=== PATIENT | female | born 1955 | race Caucasian/White ===

== ENCOUNTER → 2017-03-18 | Day surgery (SDC) | payer BC ==
[2017-03-17 13:46] VITALS: BMI 27.0
[~2017-03-18] MED LIST: Cyclopentolate 1% Opth Drop 2 ML BOT FS SCH; Cyclopentolate 1% Opth Drop 2 ML BOT ONE; Diprivan 20 ML ONE; EPINEPHrine 0.3 MG in Ophthalmic Irrigation Solution 500 ML FS SCH; Fentanyl 100 MCG/2 ML VIAL ONE; Lidocaine 2% PF 10 ML AMP (For Epidural Use) ONE; Midazolam HCl 2 mg/2 ml Vial ONE; Phenylephrine HCl 2.5% Ophth Soln 5 ML BOT FS SCH; Phenylephrine HCl 2.5% Ophth Soln 5 ML BOT ONE; Propofol 200 MG/20 ML VIAL ONE
--- NOTE | 2017-03-18 09:47 | OP ---
DATE OF PROCEDURE: 03/18/2017 PREOPERATIVE DIAGNOSIS: Vitreous opacification, right eye. POSTOPERATIVE DIAGNOSIS: Vitreous opacification, right eye. PROCEDURE: Pars plana vitrectomy, right eye. SURGEON: Cy Thomas M.D. ANESTHESIA: Local with monitored anesthesia care. COMPLICATIONS: None. PROCEDURE IN DETAIL: The patient was identified in the preoperative holding area. Appropriate info rmed consent for the planned surgical procedure on the right eye had been obtained. The patient was transported to the operative suite where appropriate cardiopulmonary monitoring was established. L ocal anesthesia was obtained using retrobulbar and modified Van Lint lid block using 50/50 mixture o f 4% lidocaine and 0.75% bupivacaine. The patient was prepped and draped in the usual sterile bakari r for ophthalmic surgery on the right eye. Lid speculum was placed in the right eye. The 25-gauge trocars were placed in conjunctiva and sclera supratemporally, inferotemporally, and supranasally. Infusion line was placed inferotemporally, and 20-gauge sclerotomy was created supranasally. Vitreo us fluid removal device was inserted into the eye and silicone oil was removed. Sclerotomy was sutu re closed with 7-0 Vicryl suture. Light pipe and vitreous cutter were inserted into the eye. Resid ual droplets and vitreous fluid was removed at this time. Retina was nicely attached. Trocar s were removed and sutured closed with 6-0 plain gut suture. Retrobulbar Kenalog and subconjunctiva l Ancef were placed. Atropine and antibiotic ointment were placed, and the eye was patched and shie lded. The patient was taken to the postoperative recovery unit in good condition having suffered no immediate perioperative complications. DISCHARGE INSTRUCTIONS: The patient was instructed to keep patch and shield on, avoid lifting and b ending, and follow up in the morning with Dr. Thomas.
== END ==
LOC: SDC 06:15
PROVIDERS: ATTEND Ophthalmology Retina Specialist
PROC: 08T43ZZ Resection of Right Vitreous, Percutaneous Approach (ICD-10-PCS; principal; 2017-03-18)
DX: H43.311 Vitreous membranes and strands, right eye (principal); Z98.890 Other specified postprocedural states; Z79.899 Other long term (current) drug therapy; Z88.2 Allergy status to sulfonamides
CPT/HCPCS: J0171; J2001; J2250; J2704; J3010

== ENCOUNTER 2017-11-10 12:14 | Outpatient (CLI) | payer BC | END 2017-11-10 12:15 | disposition home or self-care (01) | LOC: BICMAMMO 12:14 | PROVIDERS: ATTEND Internal Medicine | DX: Z12.31 Encounter for screening mammogram for malignant neoplasm of breast (principal); Z80.3 Family history of malignant neoplasm of breast; Z85.820 Personal history of malignant melanoma of skin | CPT/HCPCS: 77063; 77067 ==

== ENCOUNTER 2018-12-05 15:23 | Outpatient (CLI) | payer BC ==
--- NOTE | 2018-12-05 15:56 | MMO ---
Bilateral MAMMO Bilat Screen [facility]. CLINICAL HISTORY: Patient is 62 years old and is seen for screening. VIEWS: The views performed were: bilateral craniocaudal with tomosynthesis and bilateral mediolateral oblique with tomosynthesis. FILMS COMPARED: The present examination has been compared to prior imaging studies performed at [facility] on 04/30/2009, 12/14/2014, 10/06/2016 and 11/10/2017. MAMMOGRAM FINDINGS: There are scattered fibroglandular densities. There are stable benign appearing calcifications seen in both breasts. There are no suspicious masses, suspicious calcifications, or new areas of architectural distortion. IMPRESSION: THERE IS NO MAMMOGRAPHIC EVIDENCE OF MALIGNANCY. A ROUTINE FOLLOW-UP MAMMOGRAM IN 1 YEAR IS RECOMMENDED. THE RESULTS OF THIS EXAM WERE SENT TO THE PATIENT. ACR BI-RADS Category 2 - Benign finding MAMMOGRAPHY NOTE: 1. A negative mammogram report should not delay a biopsy if a dominant of clinically suspicious mass is present. 2. Approximately 10% to 15% of breast cancers are not detected by mammography. 3. Adenosis and dense breasts may obscure an underlying neoplasm.
== END 2018-12-05 15:24 | disposition home or self-care (01) ==
LOC: BICMAMMO 15:23
PROVIDERS: ATTEND Internal Medicine
DX: Z12.31 Encounter for screening mammogram for malignant neoplasm of breast (principal)
CPT/HCPCS: 77063; 77067